=== PATIENT | female | born 1985 | race African-American/Black ===

== ENCOUNTER 2022-09-25 21:34 | Emergency (ER) | payer MEDICAID ==
[~2022-09-25] VITALS: Ht 149.9 cm; Wt 96.0 kg
[2022-09-25 21:41] VITALS: BP 162/82
[2022-09-25 23:45] LABS: BASOPHILS % 1.2 % (0.0-2.0); EOSINOPHILS % 1.5 % (0.0-5.0); HEMATOCRIT. 33.3 % (36.0-48.0); HEMOGLOBIN. 10.5 g/dL (12.0-16.0); LYMPHOCYTES % 24.1 % (20.0-50.0); MEAN CORPUSCULAR HEMOGLOBIN 24.7 pg (28.0-32.0); MEAN CORPUSCULAR VOLUME 78.8 fL (81.0-99.0); MEAN PLATELET VOLUME 7.4 fl (7.4-10.4); MONOCYTES % 9.1 % (2.0-8.0); NEUTROPHILS % 64.1 % (40.0-76.0); PLATELET 390 x1000/uL (130-400); RED BLOOD CELL COUNT 4.23 mill/uL (4.2-5.4)
[2022-09-26 00:09] LABS: CHLORIDE 107 mEq/L (98-107)
== END 2022-09-26 01:36 | disposition home or self-care (01) ==
LOC: ER 21:34
DX: R07.89 Other chest pain (principal); I10 Essential (primary) hypertension; Z98.890 Other specified postprocedural states
CPT/HCPCS: 36415; 80053; 84484; 85025; 85379; 93005; 99284